=== PATIENT | male | born 1960 | race Caucasian/White ===

== ENCOUNTER → 2018-03-29 | Outpatient (CLI) | payer MEDICARE, MEDICAID ==
[~2018-03-29] MED LIST: AMLO10TA80 PO; ASPI-1158 PO; ASPI-1160; ATOR20TA; ATOR20TA65 PO; BUPIVACAINE HCL 0.5% (5MG/ML) 50ML ONE; CALC0.253; DEXAMETHASONE 4MG/ML 1ML VIAL ONE; DOXA4TAB3 PO; FENTANYL CITRATE/PF 50MCG/ML 2ML VIAL ONE; FOLI1TAB87 PO; FOS1G PO; FURO80TA3 PO; GLYCOPYRROLATE 0.2 MG/ML 2ML VIAL ONE; HYDR-4133; LOSA100T14; LOSA100T14 PO; METO-539 PO; MIDAZOLAM HCL 2 MG/2 ML VIAL ONE; NEOSTIGMINE METHYLSULFATE 1MG/ML 10 ML VIAL ONE; ONDANSETRON HCL 4MG/2ML INJ ONE; PROPOFOL 200MG/20ML VIAL IV ONE; ROCURONIUM BROMIDE 10MG/ML VIAL 5ML IV ONE; SITA25TA3; SITA50TA3 PO; SKIN ADHESIVE 0.7 GM EA TOP ONE; TOPXL5
== END | disposition home or self-care (01) ==
LOC: RAD 12:35
PROVIDERS: ATTEND Internal Medicine Nephrology
DX: Z01.818 Encounter for other preprocedural examination (principal); K42.9 Umbilical hernia without obstruction or gangrene
CPT/HCPCS: 71045

== ENCOUNTER 2018-04-19 05:50 | Day surgery (SDC) | payer MEDICARE, MEDICAID ==
[~2018-04-19] VITALS: Ht 167.6 cm; Wt 93.9 kg
[~2018-04-19 05:50] MED LIST changes: -BUPIVACAINE HCL 0.5% (5MG/ML) 50ML ONE; -DEXAMETHASONE 4MG/ML 1ML VIAL ONE; -FENTANYL CITRATE/PF 50MCG/ML 2ML VIAL ONE; -FOLI1TAB87 PO; -FOS1G PO; -GLYCOPYRROLATE 0.2 MG/ML 2ML VIAL ONE; -MIDAZOLAM HCL 2 MG/2 ML VIAL ONE; -NEOSTIGMINE METHYLSULFATE 1MG/ML 10 ML VIAL ONE; -ONDANSETRON HCL 4MG/2ML INJ ONE; -PROPOFOL 200MG/20ML VIAL IV ONE; -ROCURONIUM BROMIDE 10MG/ML VIAL 5ML IV ONE; -SKIN ADHESIVE 0.7 GM EA TOP ONE
[2018-04-19] MEDS ORDERED: SODIUM CHLORIDE 0.9% 500 ML IV ONE (06:45)
[2018-04-19] MEDS ORDERED: CLINDAMYCIN 900 MG in DEXTROSE 5% WATER 50 ML IV ONE (07:15)
[2018-04-19] MEDS ORDERED: FOS1G PO (07:43)
[2018-04-19] MEDS ORDERED: FOLI1TAB87 PO (07:43)
[2018-04-19] MEDS ORDERED: LABETALOL HCL 20MG/4ML CARPUJECT IV PRN (08:45)
[2018-04-19] MEDS ORDERED: MEPERIDINE HCL/PF 25MG/ML CPJ IV PRN (08:45)
[2018-04-19] MEDS ORDERED: HYDROMORPHONE HCL/PF 2MG/ML CPJ IV PRN (08:45)
[2018-04-19] MEDS: ONDANSETRON HCL 4MG/2ML INJ IV PRN ×2 (10:29→11:06)
== END 2018-04-19 11:10 | disposition home or self-care (01) ==
LOC: OR 05:50
PROVIDERS: ATTEND Surgery
DX: K42.9 Umbilical hernia without obstruction or gangrene (principal); I12.9 Hypertensive chronic kidney disease with stage 1 through stage 4 chronic kidney disease, or unspecified chronic kidney disease; E11.22 Type 2 diabetes mellitus with diabetic chronic kidney disease; N18.9 Chronic kidney disease, unspecified; Z99.2 Dependence on renal dialysis; Z98.890 Other specified postprocedural states; Z79.899 Other long term (current) drug therapy
CPT/HCPCS: 36415; 49652; 82962; 84132; C1781; J1100; J2250; J2405; J2710; J3010; J3490; J2704; J7040; J7060

== ENCOUNTER → 2018-10-25 | Outpatient (CLI) | payer MEDICARE, MEDICAID ==
[~2018-10-25] MED LIST changes: -AMLO10TA80 PO; -ASPI-1160; -ATOR20TA; -ATOR20TA65 PO; -CALC0.253; -DOXA4TAB3 PO; +FOLI1TAB87 PO; +FOS1G PO; -FURO80TA3 PO; -HYDR-4133; -LOSA100T14; -LOSA100T14 PO; +LOSA100T32 PO; -METO-539 PO; -SITA25TA3; -TOPXL5
== END | disposition home or self-care (01) ==
LOC: US 08:09
PROVIDERS: ATTEND Internal Medicine Nephrology
DX: R18.8 Other ascites (principal)
CPT/HCPCS: 76705